=== PATIENT | female | born 1960 | race Asian ===

== ENCOUNTER 2019-04-08 17:43 | Emergency (ER) | payer OTHER ==
[2019-04-08 18:03] VITALS: BP 118/84; PULSE 70; TEMP 98.5; BMI 19.5
[2019-04-08] MEDS ORDERED: ONDANSETRON 4 MG/2 ML VIAL IVPUSH ONE (18:09)
[2019-04-08] MEDS ORDERED: SODIUM CHLORIDE 0.9% 1000 ML INFUS.BAG IV ONE ×2 (18:09→18:39)
[2019-04-08] MEDS ORDERED: ONDANSETRON 4 MG/2 ML VIAL ONE (18:32)
[2019-04-08] MEDS ORDERED: FAMOTIDINE 20 MG/50 ML IVPB 20 MG/50 ML MG IVPB ONE ×2 (18:39→18:46)
--- NOTE | 2019-04-08 18:39 | PDOC ---
History of Present Illness - General Chief Complaint: Nausea/Vomiting Stated Complaint: VOMITING History Source: Patient Exam Limitations: No Limitations - History of Present Illness Initial Comments: 04/08/19 18:36 59 yo F no pmhx here with c/o n/v since this am. states she threw up [address] lopez in office earlier. feeling lightheaded. 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 pt was sick also 2 weeks ago. has had cough nonproductive for 3 weeks. feels chilled. no fever now. no cp. c/o epigastric pain, non radiating. surgical history is prior c section. Past History - Past Medical History Allergies/Adverse Reactions: Allergies Allergy/AdvReac Type Severity Reaction Status Date / Time No Known Allergies Allergy Verified 04/08/19 17:50 Home Medications: Ambulatory Orders Ondansetron [Zofran *Odt*] 8 mg SL TID PRN #12 od.tablet 04/08/19 COPD: No Other medical history: PT DENIES - Psycho Social/Smoking Cessation Hx Smoking History: Never smoked Hx Alcohol Use: Yes (SOCIAL) Drug/Substance Use Hx: No Review of Systems - Review of Systems Constitutional: Yes: Chills, Fever. No: Diaphoresis HEENTM: No: Eye Pain Respiratory: Yes: Cough. No: Orthopnea, Shortness of Breath Cardiac (ROS): No: Chest Pain ABD/GI: Yes: Nausea, Vomiting. No: Diarrhea : No: Burning, Dysuria, Discharge Musculoskeletal: No: Back Pain Integumentary: No: Bruising, Change in Color All Other Systems: Reviewed and Negative *Physical Exam - Vital Signs Last Vital Signs Temp Pulse Resp BP Pulse Ox 98.5 F 70 17 118/84 100 04/08/19 17:50 04/08/19 17:50 04/08/19 17:50 04/08/19 17:50 04/08/19 17:50 - Physical Exam 04/08/19 18:37 awake alert lungs clear bilat heart rrr no mrg epigastric ttp. no rebound no guaurding. skin warm and dry. ext wwp. no edema. no calf tenderness. alert orietned x 3. neg muprhy's neg cva tenderness. ED Treatment Course - LABORATORY CBC & Chemistry Diagram: 04/08/19 18:24 04/08/19 18:24 Medical Decision Making - Medical Decision Making 04/08/19 18:38 59 yo F with intractable n/v epigastric ttp on exam. neg higginbotham's cough. differential includes pna, viral syndrome such as influenze, dehdyuration gastritis, pancreatitis. uti. paln cxr labs ua iv hdyration 2L NS pepcid zofran. cxr r//o pna. 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 Discharge - Discharge Information Problems reviewed: Yes Clinical Impression/Diagnosis: Nausea & vomiting, Dehydration Condition: Stable Disposition: HOME - Additional Discharge Information Prescriptions: Ondansetron [Zofran *Odt*] 8 mg SL TID PRN #12 od.tablet PRN Reason: Nausea And/Or Vomiting - Follow up/Referral - Patient Discharge Instructions Patient Printed Discharge Instructions: DI for Nausea -- Adult, DI for Vomiting -- Adult Additional Instructions: I sent a prescription to your pharmacy for a nausea medicine take it 1 tablet as often as 3 times a day as needed for nausea or vomiting. Clear liquids only for the next 6 hours.. After that if you have had no further vomiting you may have bananas, rice, applesauce, or toast. If no further vomiting for another 8 hours you may have regular food. If you vomit again then nothing to eat or drink for 2 hours. then start back with the clear liquids. Return to the emergency department immediately with ANY new, persistent or worsening symptoms. You MUST call and follow up with your doctor tomorrow if not better. Please make sure your doctor reviews the results of your emergency evaluation. Return to the emergency department immediately with ANY new, persistent or worsening symptoms. Continue any medications as previously prescribed by your physician. You should follow up with your primary doctor as soon as possible regarding today's emergency department visit. . Please make sure your doctor reviews the results of your emergency evaluation. Thank you for coming to the Emergency Department today for your care. It was a pleasure to see you today. Please note that your evaluation is INCOMPLETE until you follow-up with your doctor. - Post Discharge Activity
[2019-04-08 18:49] LABS: BASO % 0.4 % (0-2.0); EOS % 0.5 % (0-4.5); HEMOGLOBIN 13.6 GM/dl (10.7-15.3); LYMPH % 9.2 % (8-40); MCH 32.5 pg (25.7-33.7); MCHC 33.9 g/dl (32.0-36.0); MEAN CELL VOLUME 95.9 fl (80-96); MEAN PLT VOLUME 7.5 fl (7.5-11.1); MONO % 3.6 % (3.8-10.2); NEUT % 86.3 % (42.8-82.8); PLATELET COUNT 314 K/MM3 (134-434); RBC 4.18 M/mm3 (3.60-5.2); RDW 11.3 % (11.6-15.6)
[2019-04-08 18:53] LABS: ALBUMIN 4.6 g/dl (3.4-5.0); BILIRUBIN,TOTAL 2.2 mg/dl (0.2-1); CREATININE 0.6 mg/dl (0.55-1.3); POTASSIUM 3.2 mmol/L (3.5-5.1); TOT PROT 7.5 g/dl (6.4-8.2)
[2019-04-08] MEDS ORDERED: POTASSIUM CHLORIDE TABS 20 MEQ TABLET.ER (FP) PO ONE ×2 (19:18→19:20)
--- NOTE | 2019-04-08 19:29 | PDOC ---
*Physical Exam - Vital Signs Last Vital Signs Temp Pulse Resp BP Pulse Ox 98.5 F 70 17 118/84 100 04/08/19 17:50 04/08/19 17:50 04/08/19 17:50 04/08/19 17:50 04/08/19 17:50 ED Treatment Course - LABORATORY CBC & Chemistry Diagram: 04/08/19 18:24 04/08/19 18:24 - ADDITIONAL ORDERS Additional order review: Laboratory Results 04/08/19 04/08/19 18:24 18:24 Sodium 137 Potassium 3.2 L Chloride 110 H Carbon Dioxide 22 Anion Gap 5 L BUN 27.0 H Creatinine 0.6 Est GFR (CKD-EPI)AfAm 115.63 Est GFR (CKD-EPI)NonAf 99.77 Random Glucose 105 Calcium 9.0 Total Bilirubin 2.2 H AST 19 ALT 17 Alkaline Phosphatase 48 Total Protein 7.5 Albumin 4.6 Lipase 170 04/08/19 18:24 RBC 4.18 MCV 95.9 MCHC 33.9 RDW 11.3 L MPV 7.5 Neutrophils % 86.3 H Lymphocytes % 9.2 Monocytes % 3.6 L Eosinophils % 0.5 Basophils % 0.4 - Medications Given in the ED: ED Medications Discontinued Medications Generic Name Dose Route Start Last Admin Trade Name Freq PRN Reason Stop Dose Admin Famotidine/Sodium Chloride 20 mg in 50 mls @ 100 mls/hr 04/08/19 18:39 18:48 Pepcid 20 Mg Premixed Ivpb - IVPB 04/08/19 19:08 100 mls/hr ONCE ONE Administration Ondansetron HCl 4 mg 04/08/19 18:09 04/08/19 18:42 Zofran Injection IVPUSH 04/08/19 18:10 4 mg ONCE ONE Administration Potassium Chloride 40 meq 04/08/19 19:18 04/08/19 19:22 K-Dur - PO 04/08/19 19:19 40 meq ONCE ONE Administration Sodium Chloride 1,000 ml 04/08/19 18:09 04/08/19 18:42 Normal Saline - IV 04/08/19 18:10 1,000 ml ONCE ONE Administration Sodium Chloride 1,000 ml 04/08/19 18:39 04/08/19 19:11 Normal Saline - IV 04/08/19 18:40 1,000 ml ONCE ONE Administration ED Progress Note - Progress Note Progress Note: 04/08/19 19:27 This patient was transferred to me from Dr. Mason at 1900 hrs. Patient is a 59-year-old female who has had approximately 1 week of intermittent nausea vomiting and symptoms had improved but then today worsened again she came in complaining of feeling lightheaded and dizzy. Patient is receiving antiemetics fluids and had some tenderness in the epigastric right upper quadrant area so is in for a gallbladder ultrasound as well. Patient's white count is normal Her potassium was a little low so she was given K. Dur Her chemistries were otherwise normal with the exception of a mildly elevated bilirubin thus prompting the gallbladder ultrasound. 04/08/19 20:02 Patient states that she feels much better that she has no more abdominal pain there is been no more nausea vomiting and she is tolerating p.o.'s. Patient does not want a gallbladder ultrasound and wants to be discharged. Patient discharged and prescription for Zofran was sent to her pharmacy. Patient will follow-up with her primary care doctor. Discharge - Discharge Information Problems reviewed: Yes Clinical Impression/Diagnosis: Nausea & vomiting, Dehydration Condition: Stable Disposition: HOME - Admission No - Follow up/Referral - Patient Discharge Instructions Patient Printed Discharge Instructions: DI for Vomiting -- Adult, DI for Nausea -- Adult Additional Instructions: I sent a prescription to your pharmacy for a nausea medicine take it 1 tablet as often as 3 times a day as needed for nausea or vomiting. Clear liquids only for the next 6 hours.. After that if you have had no further vomiting you may have bananas, rice, applesauce, or toast. If no further vomiting for another 8 hours you may have regular food. If you vomit again then nothing to eat or drink for 2 hours. then start back with the clear liquids. Return to the emergency department immediately with ANY new, persistent or worsening symptoms. You MUST call and follow up with your doctor tomorrow if not better. Please make sure your doctor reviews the results of your emergency evaluation. Return to the emergency department immediately with ANY new, persistent or worsening symptoms. Continue any medications as previously prescribed by your physician. You should follow up with your primary doctor as soon as possible regarding today's emergency department visit. . Please make sure your doctor reviews the results of your emergency evaluation. Thank you for coming to the Emergency Department today for your care. It was a pleasure to see you today. Please note that your evaluation is INCOMPLETE until you follow-up with your doctor. - Post Discharge Activity
== END 2019-04-08 20:06 | disposition home or self-care (01) ==
LOC: FER 17:43
PROC: 3E033GC Introduction of Other Therapeutic Substance into Peripheral Vein, Percutaneous Approach (ICD-10-PCS; principal; 2019-04-08)
DX: E86.0 Dehydration (principal); R11.2 Nausea with vomiting, unspecified
CPT/HCPCS: 36415; 71046-TC-FY; 80053; 83690; 85025; 87804; 99283-25; J7030